=== PATIENT | male | born 1945 | race Caucasian/White ===

== ENCOUNTER 2021-09-10 17:15 | Emergency (ER) | payer OTHER ==
[~2021-09-10] VITALS: Ht 157.5 cm; Wt 51.7 kg
== END 2021-09-10 22:17 | disposition home or self-care (01) ==
LOC: ER 17:15
DX: I10 Essential (primary) hypertension (principal); Z88.0 Allergy status to penicillin; Z91.013 Allergy to seafood; Z20.822 Contact with and (suspected) exposure to COVID-19

== ENCOUNTER → 2023-06-02 10:23 | Outpatient (CLI) | payer OTHER ==
[2023-06-02 11:34] LABS: CREATININE SERUM 0.9 mg/dL (0.70-1.30); GFR 81.82
== END | disposition home or self-care (01) ==
LOC: LAB 10:23
PROVIDERS: ATTEND Radiology Diagnostic Radiology
DX: R74.9 Abnormal serum enzyme level, unspecified (principal); R10.812 Left upper quadrant abdominal tenderness

== ENCOUNTER 2023-06-02 12:21 | Outpatient (CLI) | payer OTHER | END 2023-06-02 12:31 | disposition home or self-care (01) | LOC: TOM 12:21 | PROVIDERS: ATTEND General Practice | DX: R74.8 Abnormal levels of other serum enzymes (principal); R10.812 Left upper quadrant abdominal tenderness | CPT/HCPCS: 74170; Q9965 ==

== ENCOUNTER 2024-11-16 12:37 | Outpatient (CLI) | payer OTHER | END 2024-11-16 12:42 | disposition home or self-care (01) | LOC: RAD 12:37 | PROVIDERS: ATTEND General Practice | DX: M54.6 Pain in thoracic spine (principal); M54.50 Low back pain, unspecified; I11.9 Hypertensive heart disease without heart failure; J45.998 Other asthma ==